=== PATIENT | male | born 1945 | race Caucasian/White ===

== ENCOUNTER 2019-02-24 14:23 | Emergency (ER) | payer BC, OTHER ==
[~2019-02-24] VITALS: Ht 177.8 cm; Wt 100.6 kg
[2019-02-24] MEDS ORDERED: FLUOCRE TOP (14:35)
[2019-02-24] MEDS ORDERED: FISH1000 PO (14:35)
[2019-02-24] MEDS ORDERED: SIMV20TA2 (14:35)
[2019-02-24] MEDS ORDERED: AMLO10TA5 (14:35)
[2019-02-24] MEDS ORDERED: TRAZ-163 PO (14:35)
[2019-02-24] MEDS ORDERED: MM S100C PO (14:35)
[2019-02-24] MEDS ORDERED: CLAR10CA3 PO (14:35)
[2019-02-24] MEDS ORDERED: BUPR100T3 PO (14:35)
[2019-02-24] MEDS ORDERED: NORT25CA2 PO (14:35)
[2019-02-24] MEDS ORDERED: ECOT81TA5 PO (14:35)
[2019-02-24] MEDS ORDERED: VALS1TAB67 (14:35)
[2019-02-24] MEDS ORDERED: HYDR25TAB (14:35)
[2019-02-24] MEDS ORDERED: ATEN25TA (14:35)
[2019-02-24] MEDS ORDERED: VERA180T3 (14:35)
[2019-02-24] MEDS ORDERED: PANT40TA3 PO (14:35)
[2019-02-24] MEDS ORDERED: LIDO3CRE14 TOP (14:35)
[2019-02-24] MEDS ORDERED: CLOP75TA2 (14:35)
[2019-02-24] MEDS ORDERED: LISI-538 (14:35)
--- NOTE | 2019-02-24 15:05 | REP ---
CT brain: 02/24/2019. Indication: Head trauma. Comparison: 08/05/2009. Technique: Unenhanced axial CT images of the brain were obtained from skull base to vertex. Findings: There is no acute intracranial hemorrhage, acute cortical infarction, mass effect, hydrocephalus or acute calvarial fracture. Diffuse volume loss is present. Patchy areas of white matter hypoattenuation are present within the bilateral cerebral hemisphere white matter. Chronic-appearing bilateral basal ganglia and right thalamic lacunar infarctions are present. Impression: No acute intracranial process. 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 Volume loss. Considering reported patient's use of anticoagulants, follow up head CT is recommended to exclude delayed bleed. Electronically Signed by Reid Mason DO 02/24/2019 02:57 P
[2019-02-24] MEDS ORDERED: LIDOCAINE 2% MDV 20 ML VIAL SC ONE (16:00)
[2019-02-24 16:49] VITALS: BP 120/73
== END 2019-02-24 16:57 | disposition home or self-care (01) ==
LOC: M ED 14:23
DX: S01.112A Laceration without foreign body of left eyelid and periocular area, initial encounter (principal); W11.XXXA Fall on and from ladder, initial encounter; Y92.099 Unspecified place in other non-institutional residence as the place of occurrence of the external cause; Y93.9 Activity, unspecified; Y99.9 Unspecified external cause status; I10 Essential (primary) hypertension; Z86.73 Personal history of transient ischemic attack (TIA), and cerebral infarction without residual deficits; K21.9 Gastro-esophageal reflux disease without esophagitis; M54.9 Dorsalgia, unspecified; F43.10 Post-traumatic stress disorder, unspecified; F41.9 Anxiety disorder, unspecified; D75.1 Secondary polycythemia; Z79.82 Long term (current) use of aspirin; Z79.899 Other long term (current) drug therapy; Z88.6 Allergy status to analgesic agent

== ENCOUNTER → 2019-10-28 | Outpatient (CLI) | payer OTHER ==
[~2019-10-28] MED LIST: AMLO10TA5; ATEN25TA; BUPR100T3 PO; CLAR10CA3 PO; CLOP75TA2; ECOT81TA5 PO; FISH1000 PO; FLUOCRE TOP; HYDR25TAB; LIDO3CRE14 TOP; LISI-538; MM S100C PO; NORT25CA2 PO; PANT40TA3 PO; SIMV20TA22; TRAZ-257 PO; VALS1TAB67; VERA180T3
--- NOTE | 2019-10-28 09:20 | REP ---
CAROTID ULTRASOUND: Real-time ultrasound evaluation and duplex Doppler interrogation of the extracranial carotid vasculature is performed. There is mild plaquing and narrowing in both carotid bulbs extending into the internal and external carotid arteries. Luminal narrowing is less than 50%. There is no evidence of hemodynamically significant stenosis of either internal carotid artery. Normal flow velocities are seen. The vertebral arteries demonstrate normal direction of flow. RIGHT LEFT Peak systolic velocity ICA 38.9 cm/s 37.4 cm/s End diastolic velocity ICA 10.5 cm/s 14.5 cm/s Peak systolic velocity CCA 80.7 cm/s 72.6 cm/s Peak systolic velocity ECA 72.7 cm/s 56.7 cm/s ICA/CCA ratio 0.5 0.5 IMPRESSION: Bilateral luminal narrowing of the internal carotid arteries less than 50%. No evidence of hemodynamically significant stenosis. Electronically Signed by Juanito Galarza MD 10/28/2019 09:12 A
--- NOTE | 2019-10-28 10:05 | REP ---
ULTRASOUND ABDOMINAL AORTA: Real-time sonographic evaluation of the abdominal aorta performed. There is no sonographic evidence of abdominal aortic aneurysm. There is mild ectasia of the mid to distal abdominal aorta with a maximum AP diameter of 2.5 cm, transverse 2.6 cm. More proximally at the level of the diaphragm, maximum AP diameter is 2.5 cm, at the level of the renal arteries 2.0 cm and just above the bifurcation 1.7 cm. Common iliac arteries are normal in caliber, right measuring 1.0 x 1.4 cm and left 1.3 x 1.4 cm. IMPRESSION: Mild ectasia distal abdominal aorta with no evidence of abdominal aortic aneurysm. Electronically Signed by Juanito Galarza MD 10/28/2019 03:05 P
== END ==
LOC: M RAD 08:26
PROVIDERS: ATTEND Family Medicine
DX: I71.4 Abdominal aortic aneurysm, without rupture (principal); I67.9 Cerebrovascular disease, unspecified

== ENCOUNTER → 2019-11-01 | Outpatient (CLI) | payer OTHER ==
--- NOTE | 2019-11-01 09:59 | REP ---
Bilateral lower extremity arterial Doppler ultrasound: History: Question uropathy. Leg pain. Mild claudication. Findings: Ankle brachial indices are normal bilaterally measured on each side and 1.0. Relatively normal triphasic and biphasic waveforms are noted throughout the arterial tree and both lower extremities. Moderate plaquing is observed. There is mild focal luminal narrowing in the the left popliteal artery but no evidence of stenosis greater than 2:1 velocity ratios. Right lower extremity arterial Doppler velocity chart: CF A PSV 104 cm/S Profunda 68 Proximal SFA 187 Mid SFA 77 Distal SFA 83 Popliteal 55 Proximal AT A 60 Tibioperoneal trunk 57 Proximal ASSOCIATE VETERINARIAN 54 Distal ASSOCIATE VETERINARIAN 56 Distal AT A 52 Left lower extremity arterial Doppler velocity chart: CF A PSV 82 cm/S Profunda 70 Proximal SFA 90 Mid SFA 86 Distal SFA 70 Popliteal 67/100 Proximal AT A 79 Tibioperoneal trunk 56 Proximal ASSOCIATE VETERINARIAN 35 Distal ASSOCIATE VETERINARIAN 53 Distal AT A 71 Electronically Signed by Julio Yuan MD 11/01/2019 09:50 A
== END ==
LOC: M RAD 08:14
PROVIDERS: ATTEND Family Medicine
DX: I70.213 Atherosclerosis of native arteries of extremities with intermittent claudication, bilateral legs (principal)

== ENCOUNTER 2020-02-12 15:21 | Emergency (ER) | payer OTHER, BC ==
[~2020-02-12] VITALS: Ht 175.3 cm; Wt 99.8 kg
[~2020-02-12 15:21] MED LIST changes: -AMLO10TA5; +AMLO1TAB25; +PANT40TA29 PO; -PANT40TA3 PO
--- NOTE | 2020-02-12 16:35 | REPVR ---
PROCEDURE INFORMATION: Exam: CT Cervical Spine Without Contrast Exam date and time: 02/12/2020 3:35 PM Age: 74 years old Clinical indication: Injury or trauma; Fall; Blunt trauma; Additional info: Fall on thinners TECHNIQUE: Imaging protocol: Computed tomography images of the cervical spine without contrast. Radiation optimization: All CT scans at this facility use at least one of these dose optimization techniques: automated exposure control; mA and/or kV adjustment per patient size (includes targeted exams where dose is matched to clinical indication); or iterative reconstruction. COMPARISON: US Duplex,carotid (complete) 10/28/2019 8:53 AM FINDINGS: Vertebrae: No acute fracture. Normal alignment. C2-C3: No significant disc protrusion. Mild bilateral facet arthropathy. No severe spinal canal stenosis. No significant neural foraminal narrowing. C3-C4: No significant disc protrusion. Uncovertebral hypertrophy bilaterally. Facet arthropathy particularly on the left. Mild central stenosis. Moderate left foraminal stenosis. C4-C5: Uncovertebral hypertrophy particularly on the right. Bilateral facet arthropathy. Mild central stenosis. Moderate right foraminal stenosis C5-C6: Ankylosis of the vertebral bodies. Posterior osteophyte ridge asymmetric to the left with uncovertebral hypertrophy. Mild narrowing left lateral recess. No severe spinal canal stenosis. Mild bilateral foraminal stenosis.. C6-C7: Posterior disc osteophyte ridge asymmetric to the left. Uncovertebral hypertrophy bilaterally. Mild narrowing left lateral recess.. No severe spinal canal stenosis. No significant neural foraminal narrowing. C7-T1: No significant disc protrusion. No severe spinal canal stenosis. No significant neural foraminal narrowing. Soft tissues: Unremarkable. Lungs: Lung apices are normal. IMPRESSION: No acute findings. 2. Degenerative disc disease and facet arthropathy. Multilevel mild central and foraminal stenosis. Electronically signed by: Rayna Liu On 02/12/2020 16:35:14 PM
--- NOTE | 2020-02-12 16:42 | REPVR ---
PROCEDURE INFORMATION: Exam: CT Head Without Contrast Exam date and time: 02/12/2020 3:35 PM Age: 74 years old Clinical indication: Injury or trauma; Fall; Blunt trauma (contusions or hematomas); Additional info: Fall on thinners TECHNIQUE: Imaging protocol: Computed tomography of the head without contrast. Radiation optimization: All CT scans at this facility use at least one of these dose optimization techniques: automated exposure control; mA and/or kV adjustment per patient size (includes targeted exams where dose is matched to clinical indication); or iterative reconstruction. COMPARISON: CT Head without contrast 02/24/2019 2:54 PM FINDINGS: Brain: Moderately advanced generalized cortical atrophy. Patchy low-density in the periventricular white matter extending into gordon radiata and centrum semiovale bilaterally. Moderate cerebellar atrophy. 6.7 mm chronic lacunar infarct in the right thalamus. 7 mm lacunar infarct in the genu of the internal capsule on the right. 4.8 mm lacunar infarct subinsular white matter on the left.. 2 lacunar infarcts in right lentiform nucleus measuring less than 5 mm. No hemorrhage. No mass effect. Midline structures intact. Cerebral ventricles: No ventriculomegaly. Bones/joints: Motion artifact degrades image quality at the skull base. Paranasal sinuses: Visualized sinuses are unremarkable. No fluid levels. Mastoid air cells: Visualized mastoid air cells are well aerated. Soft tissues: Unremarkable. IMPRESSION: 1. No acute findings. Artifact the skull base limits image quality 2. Moderately advanced generalized cortical atrophy. 3. Moderately advanced chronic microvascular ischemic change in the deep white matter including several chronic lacunar infarcts. Electronically signed by: Rayna Liu On 02/12/2020 16:42:26 PM
[2020-02-12 17:16] VITALS: BP 142/78
== END 2020-02-12 17:16 | disposition home or self-care (01) ==
LOC: M ED 15:21
DX: S09.90XA Unspecified injury of head, initial encounter (principal); W01.0XXA Fall on same level from slipping, tripping and stumbling without subsequent striking against object, initial encounter; Y92.019 Unspecified place in single-family (private) house as the place of occurrence of the external cause; Y93.89 Activity, other specified; G31.9 Degenerative disease of nervous system, unspecified; M48.02 Spinal stenosis, cervical region; M50.30 Other cervical disc degeneration, unspecified cervical region; I10 Essential (primary) hypertension; Z86.73 Personal history of transient ischemic attack (TIA), and cerebral infarction without residual deficits; Z79.01 Long term (current) use of anticoagulants; Z79.899 Other long term (current) drug therapy

== ENCOUNTER → 2020-08-10 | Outpatient (CLI) | payer OTHER ==
[~2020-08-10] MED LIST changes: +HYDR-3490; -HYDR25TAB; -LISI-538; +LISI20TA33
--- NOTE | 2020-08-10 14:59 | ECHO ---
DATE OF PROCEDURE: 08/10/2020 Age: 74 Gender: Male Height: 70 inches Weight: 210 pounds Body Surface Area: 2.12 m2 PATIENT LOCATION: Outpatient. REFERRING PHYSICIAN: Kamlesh Bates MD. INDICATION: Hypertension. MEASUREMENTS: 2D Measurements: RV 2.9 cm LV 4.9 cm Septum 1.0 cm Posterior wall 1.0 cm Aortic Root 3.4 cm LA - 3.6 cm LVEF 65% Doppler Measurements: AV 1.54 m/s LVOT 0.95 m/s LVOT diameter 2.2 cm MV-E 72, A 87, EA ratio 0.8 Early mitral deceleration time 209 msec E prime medial 6.5, A prime medial 9, E prime lateral 7.2 Average E/E prime ratio 10.5/PCWP 14.9 mmHg PV 0.8 m/s Pulmonary artery acceleration time 140 msec PASP 20 mmHg IVC 1.8 cm COMMENTS: Normal sinus rhythm without intraventricular conduction disturbance. M-mode and 2-dimensional echocardiography was performed with pulse, continuous wave, color flow, and tissue Doppler studies. Normal left ventricular size, wall thickness, and wall motion. Left atrial size upper limits of normal with grade 1 LV diastolic dysfunction but currently normal estimated mean left atrial pressure. Normal right heart chamber sizes and motion and estimated pulmonary arterial pressure. Normal IVC size and collapse against an elevated central venous pressure. Normal aortic diameters. Mild aortic valvular sclerosis without functional abnormality. Mild mitral annular thickening but normal leaflet thickness and excursion without posterior systolic buckling. No more than trace insufficiency. Normal appearing and functioning tricuspid valve with very mild insufficiency. No apparent intracardiac mass or pericardial effusion. MTDD
== END ==
LOC: M CARPUL 08:27
PROVIDERS: ATTEND Family Medicine
DX: I10 Essential (primary) hypertension (principal)

== ENCOUNTER 2020-11-15 18:07 | Emergency (ER) | payer BC, OTHER ==
[~2020-11-15] VITALS: Ht 177.8 cm; Wt 98.2 kg
[2020-11-15] MEDS ORDERED: POLYOPD OP (18:20)
[2020-11-15] MEDS ORDERED: CLOB0.0526 TOP (18:20)
[2020-11-15] MEDS ORDERED: QC F0.52 PO (18:20)
[2020-11-15] MEDS ORDERED: POTA20TA6 PO (18:20)
[2020-11-15] MEDS ORDERED: CARV25TA PO (18:20)
[2020-11-15] MEDS ORDERED: NS 1,000 ML IV ONE (19:50)
[2020-11-15 20:48] LABS: BASO % 0.5 % (0.0-1.0); EOS # 0.5 10^3/uL (0.0-0.5); EOS % 7.3 % (0.0-3.0); HEMATOCRIT 49.3 % (42.0-52.0); HEMOGLOBIN 16.5 g/dl (13.5-17.5); LYMPH # 2.4 10^3/uL (1.5-5.0); LYMPH % 32.9 % (24.0-44.0); MEAN CORPUSCULAR HEMOGLOBIN 31.9 pg (27.0-33.0); MEAN CORPUSCULAR HGB CONC 33.5 g/dl (32.0-36.5); MEAN CORPUSCULAR VOLUME 95.2 fl (80.0-96.0); MONO # 0.6 10^3/uL (0.0-0.8); NEUTROPHILS # 3.7 10^3/uL (1.5-8.5); PLATELET COUNT, AUTOMATED 187 10^3/uL (150-450); RED BLOOD COUNT 5.18 10^6/uL (4.30-6.10); WHITE BLOOD COUNT 7.4 10^3/uL (4.0-10.0)
[2020-11-15] MEDS ORDERED: ISOVUE-370 76% 100ML VIAL As Ordered ONE (20:58)
[2020-11-15 20:59] LABS: INR 0.91; PROTHROMBIN TIME 12.4 SECONDS (12.5-14.3)
[2020-11-15 21:00] LABS: PARTIAL THROMBOPLASTIN TIME 25.9 SECONDS (24.2-38.5)
[2020-11-15 21:23] LABS: ALBUMIN 3.5 GM/DL (3.2-5.2); ALT/SGPT 31 U/L (12-78); BILIRUBIN,DIRECT 0.1 MG/DL (0.0-0.2); BILIRUBIN,TOTAL 0.4 MG/DL (0.2-1.0); BLOOD UREA NITROGEN 13 MG/DL (7-18); CALCIUM LEVEL 9.9 MG/DL (8.8-10.2); CARBON DIOXIDE LEVEL 33 MEQ/L (21-32); CHLORIDE LEVEL 101 MEQ/L (98-107); CK-MB VALUE MASS 1.2 NG/ML (<3.6); CPK CREATINE PHOSPHOKINASE 71 U/L (39-308); GLOMERULAR FILTRATION RATE > 60.0 (>42); GLUCOSE, FASTING 111 MG/DL (70-100); LIPASE 108 U/L (73-393); MB/CK RELATIVE INDEX 1.69 (< OR =4); POTASSIUM SERUM 3.9 MEQ/L (3.5-5.1); SODIUM LEVEL 138 MEQ/L (136-145); TOTAL PROTEIN 7.1 GM/DL (6.4-8.2); TROPONIN I < 0.02 NG/ML (< 0.10)
--- NOTE | 2020-11-15 21:34 | REPVR ---
PROCEDURE INFORMATION: Exam: XR Chest Exam date and time: 11/15/2020 8:25 PM Age: 75 years old Clinical indication: Other: Coughing up blood TECHNIQUE: Imaging protocol: XR of the chest. Views: 1 view. COMPARISON: CT Spine,cervical w/o contrast 02/12/2020 3:30 PM FINDINGS: Lungs: There is a 2.9 cm irregularly ovoid nodular density in the right mid lung which is nonspecific. No previous chest imaging is available for comparison. No alveolar infiltrate. Pleural spaces: No pleural effusion. No pneumothorax is seen. Heart/Mediastinum: No cardiomegaly. Bones/joints: No acute osseous abnormality is detected. Other findings: If this has not been previously characterized, recommend follow-up chest CT. IMPRESSION: Nodular density in the right mid lung which is nonspecific. If not previously characterized, recommend follow-up chest CT. No previous chest imaging is available for comparison. Electronically signed by: Suzette Lopez On 11/15/2020 21:33:29 PM
--- NOTE | 2020-11-15 21:43 | REPVR ---
PROCEDURE INFORMATION: Exam: CTA Chest With Contrast Exam date and time: 11/15/2020 9:09 PM Age: 75 years old Clinical indication: Other: Hemoptysis; Additional info: Hemoptysis. S/P bronchoscopy, lung cancer TECHNIQUE: Imaging protocol: Computed tomographic angiography of the chest with contrast. 3D rendering (Not supervised by radiologist): MIP and/or 3D reconstructed images were created by the technologist. Radiation optimization: All CT scans at this facility use at least one of these dose optimization techniques: automated exposure control; mA and/or kV adjustment per patient size (includes targeted exams where dose is matched to clinical indication); or iterative reconstruction. Contrast material: ISOVUE 370; Contrast volume: 75 ml; Contrast route: INTRAVENOUS (IV); COMPARISON: CR Chest, 1 view 11/15/2020 8:17 PM FINDINGS: Pulmonary arteries: There are no abnormal filling defects within the pulmonary arterial system. The examination is negative for pulmonary thromboembolism. Aorta: Atherosclerotic vascular disease is noted. The thoracic aorta is normal caliber. No aneurysm or dissection is seen. Lungs: There is an ovoid, slightly irregular and spiculated 3.0 x 2.0 cm lesion in the right upper lobe which is nonspecific but highly suspicious for neoplasm. Mild atelectasis is seen in the right upper lobe. Pleural spaces: No pleural effusion. Heart: Unremarkable. No cardiomegaly. No pericardial effusion. Lymph nodes: Hypodense right hilar lymph nodes measuring 1.9 cm in the short axis, nonspecific but suspicious for metastatic disease. No left hilar nodes are seen. No abnormally enlarged mediastinal nodes. Adrenal glands: No adrenal mass identified. Bones/joints: No destructive osseous lesions identified. IMPRESSION: 1. Ovoid, slightly irregular and spiculated 3.0 x 2.0 cm lesion in the right upper lobe which is nonspecific but highly suspicious for neoplasm. Consider correlation with PET-CT. 2. Enlarged right hilar lymph nodes, nonspecific but suspicious for metastatic disease. 3. Mild right upper lobe atelectasis. Electronically signed by: Suzette Lopez On 11/15/2020 21:42:27 PM
[2020-11-15 22:00] LABS: RSV AMPLIFICATION NEGATIVE (NEGATIVE)
[2020-11-15 23:09] VITALS: BP 169/80
--- NOTE | 2020-11-17 14:40 | ED PDOC ---
Post-Departure Follow-Up radiology report faxed to Amanda Figuerao MD Nov 17, 2020 14:40
== END 2020-11-15 23:02 | disposition home or self-care (01) ==
LOC: M ED 18:07
DX: R04.2 Hemoptysis (principal); R91.8 Other nonspecific abnormal finding of lung field; J98.11 Atelectasis; R59.0 Localized enlarged lymph nodes; I10 Essential (primary) hypertension; Z86.73 Personal history of transient ischemic attack (TIA), and cerebral infarction without residual deficits; E03.9 Hypothyroidism, unspecified; K21.9 Gastro-esophageal reflux disease without esophagitis; F43.10 Post-traumatic stress disorder, unspecified; Z88.6 Allergy status to analgesic agent; Z79.01 Long term (current) use of anticoagulants; Z79.899 Other long term (current) drug therapy
CPT/HCPCS: 71045; 71275; 80047; 80048; 80076; 82550; 82553; 83690; 84484; 85025; 85610; 85730; 87040; 87631; 93041; 94760; 96360; 99284; Q9967

== ENCOUNTER → 2020-12-11 | Outpatient (CLI) | payer OTHER ==
[~2020-12-11] MED LIST changes: +CARV25TA PO; +CLOB0.0526 TOP; +POLYOPD OP; +POTA-151 PO; +QC F0.52 PO; -VERA180T3; +VERA180T42
== END ==
LOC: M PLARAD 08:16
PROVIDERS: ATTEND Family Medicine
DX: C34.11 Malignant neoplasm of upper lobe, right bronchus or lung (principal); J44.9 Chronic obstructive pulmonary disease, unspecified
CPT/HCPCS: 78815; A9552

== ENCOUNTER → 2022-08-27 | Outpatient (CLI) | payer OTHER ==
[~2022-08-27] MED LIST changes: +ARTIDRO4 OP; +BUPR-70 PO; -BUPR100T3 PO; -POLYOPD OP
== END ==
LOC: M PLAIMG 13:28
PROVIDERS: ATTEND Physician Assistant Medical
DX: H70.11 Chronic mastoiditis, right ear (principal)

== ENCOUNTER 2022-11-25 08:01 | Day surgery (SDC) | payer OTHER ==
[~2022-11-25] VITALS: Ht 177.8 cm; Wt 94.9 kg
[~2022-11-25 08:01] MED LIST changes: +AMLO1TAB25 PO; +ASPI81TA26 PO; +CARB25TA18 PO; +CLOP75TA2 PO; -HYDR-3490; +HYDR-3490 PO; +LIDO5OIN19 EX; +OMEG10002 PO; +PEPC40TA12 PO; +RA M1000 PO; -SIMV20TA22; +SIMV20TA22 PO; +TRAZ-186 PO; +TRIA1CR80 TOP; -VALS1TAB67; +VALS1TAB67 PO; +VITMTA PO
[2022-11-25] MEDS ORDERED: LR 1,000 ML IV SCH ×2 (09:15→10:20)
[2022-11-25] MEDS ORDERED: LIDOCAINE 2% 100MG/5ML SDV (FOR ANES.) As Ordered ONE (09:17)
[2022-11-25] MEDS ORDERED: propofoL 200 MG/20 ML VIAL As Ordered ONE (09:18)
[2022-11-25] MEDS ORDERED: ONDANSETRON 4MG 2ML VIAL As Ordered ONE (09:18)
[2022-11-25] MEDS ORDERED: fentaNYL 100 MCG/2 ML INJECTION As Ordered ONE (09:22)
[2022-11-25] MEDS ORDERED: ONDANSETRON 4MG 2ML VIAL IV PRN (10:20)
[2022-11-25] MEDS ORDERED: fentaNYL 100 MCG/2 ML INJECTION IV PRN (10:20)
[2022-11-25] MEDS ORDERED: oxyCODONE 5MG TAB PO PRN (10:20)
[2022-11-25] MEDS ORDERED: HYDROMORPHONE HCL 0.5 MG/ 0.5 ML SYRINGE IV PRN (10:20)
[2022-11-25 11:07] VITALS: BP 140/77; TEMP 97.6; O2SAT 94
== END 2022-11-25 12:05 | disposition home or self-care (01) ==
LOC: M SDC 08:01
PROVIDERS: ATTEND Otolaryngology
DX: H70.11 Chronic mastoiditis, right ear (principal); I10 Essential (primary) hypertension; E78.5 Hyperlipidemia, unspecified; R73.03 Prediabetes; K21.9 Gastro-esophageal reflux disease without esophagitis; F32.A Depression, unspecified; G47.33 Obstructive sleep apnea (adult) (pediatric); F43.10 Post-traumatic stress disorder, unspecified; Z86.73 Personal history of transient ischemic attack (TIA), and cerebral infarction without residual deficits; Z79.02 Long term (current) use of antithrombotics/antiplatelets; Z79.899 Other long term (current) drug therapy; Z85.118 Personal history of other malignant neoplasm of bronchus and lung; Z88.8 Allergy status to other drugs, medicaments and biological substances
CPT/HCPCS: 69436; J1100; J2405; J3010